=== PATIENT | female | born 1965 | race Caucasian/White ===

== ENCOUNTER 2021-05-27 13:56 | Emergency (ER) | payer OTHER | END 2021-05-27 15:55 | disposition home or self-care (01) | LOC: ER1 13:56 | DX: S80.01XA Contusion of right knee, initial encounter (principal); S50.811A Abrasion of right forearm, initial encounter; V49.40XA Driver injured in collision with unspecified motor vehicles in traffic accident, initial encounter; Y92.410 Unspecified street and highway as the place of occurrence of the external cause | CPT/HCPCS: 72072; 73090; 73564; 99283 ==